=== PATIENT | male | born 1940 | race Hispanic/Latino ===

== ENCOUNTER 2019-05-10 21:01 | Emergency (ER) | payer SELFPAY ==
[~2019-05-10] VITALS: Ht 160 cm; Wt 121.6 kg
[2019-05-10] MEDS ORDERED: ACETAMINOPHEN 325 MG TAB PO ONE (22:15)
--- NOTE | 2019-05-10 23:25 | Diagnostic Imaging Report ---
Cervical Spine, 7 radiographs. HISTORY: Pain COMPARISON: None. FINDINGS: Limited sensitivity for detection of subtle fractures and ligamentous abnormalities. On the lateral view, the cervical spine is visualized from the skull base to C6. The alignment is normal. No acute displaced fracture involving the visualized cervical spine. Vertebral body heights are maintained. Multilevel degenerative changes. Prevertebral soft tissues are unremarkable. IMPRESSION: No acute radiographic abnormality. If there is high clinical concern for cervical spine injury, consider obtaining CT or MRI for further evaluation. Signed by: Dr. Fercho Barragan MD on 05/10/2019 11:22 PM
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
[2019-05-10 23:49] VITALS: BP 144/69
== END 2019-05-10 23:52 | disposition home or self-care (01) ==
LOC: ER 21:01
DX: M54.2 Cervicalgia (principal); S20.211A Contusion of right front wall of thorax, initial encounter; S16.1XXA Strain of muscle, fascia and tendon at neck level, initial encounter; S39.012A Strain of muscle, fascia and tendon of lower back, initial encounter; V43.62XA Car passenger injured in collision with other type car in traffic accident, initial encounter; Y92.488 Other paved roadways as the place of occurrence of the external cause; I10 Essential (primary) hypertension; E11.9 Type 2 diabetes mellitus without complications; E78.5 Hyperlipidemia, unspecified
CPT/HCPCS: 71046; 72050; 99283